=== PATIENT | male | born 1945 | race Caucasian/White ===

== ENCOUNTER 2022-03-25 05:58 | Inpatient (IN) ==
[2022-03-22 12:50] LABS: Basophils % 0.4 % (0.0-0.8); Eosinophils # 0.1 10*3/uL (0.0-0.87); Eosinophils % 2.7 % (0.00-10.9); Hemoglobin 10.1 GM/DL (14.0-18.0); Immature Granulocytes % 0.4 %; Immature Granulocytes Absolute 0.02 #; Lymphocytes # 0.6 10*3/uL (1.4-4.0); Mean Corpuscular HGB Conc 32.6 GM/DL (32-36); Mean Corpuscular Volume 98.1 FL (87-102); Mean Platelet Volume 12.8 FL (9.6-12.0); Monocytes # 0.2 10*3/uL (0.11-0.8); Monocytes % 4.2 % (1.7-12.7); Neutrophils % 79.3 % (38.7-73.9); Platelet Count 77 T/CUMM (130-400); Red Blood Count 3.16 MC/CUMM (3.8-5.5); Red Cell Distribution Width 18.2 % (9.3-17.3); White Blood Count 4.78 T/CUMM (4-12)
[2022-03-22 12:57] LABS: PT Patient Result 11.2 SECS (10.1-12.1)
[2022-03-22 13:15] LABS: Albumin 3.5 G/DL (3.4-5.0); Bilirubin,Total 1.1 MG/DL (0.20-1.00); Calcium 8.6 MG/DL (8.5-10.1); Osmolality,Calculated 282.5 MOS/KG (273-304); Potassium 4.3 MMOL/L (3.5-5.1)
[2022-03-22 13:20] LABS: Macrocytosis Slight; Platelet Estimate Decreased
[~2022-03-25 05:58] MED LIST: LEVOFLOXACIN INJ 500 MG/100 ML PREMIX IV ONE
[2022-03-25] MEDS ORDERED: LACTATED RINGERS 1,000 ML IV SCH (07:00)
[2022-03-25] MEDS ORDERED: FAMOTIDINE 20 MG TABLET PO STA (07:41)
[2022-03-25] MEDS ORDERED: FAMOTIDINE 20 MG TABLET ONE (07:41)
[2022-03-25] MEDS ORDERED: DEXTROSE 50% 25 GM/50 ML SYRINGE IV ONE (07:58)
[2022-03-25] MEDS ORDERED: LEVOFLOXACIN INJ 500 MG/100 ML PREMIX IV ONE (08:00)
[2022-03-25] MEDS ORDERED: DEXTROSE 50% 25 GM/50 ML SYRINGE IV STA (08:00)
[2022-03-25] MEDS ORDERED: ePHEDrine 50 MG/ML VIAL ONE (08:13)
[2022-03-25] MEDS ORDERED: fentaNYL 100 MCG/2 ML VIAL ONE (08:14)
[2022-03-25] MEDS ORDERED: HEPARIN/NACL 0.9% 2 UNITS/ML 2,000 UNIT/1,000 ML BAG IV ONE ×2 (09:50)
[2022-03-25] MEDS ORDERED: LIDOCAINE 2% 5 ML VIAL ONE (13:00)
[2022-03-25] MEDS ORDERED: NEOSTIGMINE 10 MG/10 ML VIAL ONE (13:00)
[2022-03-25] MEDS ORDERED: propofoL 200 MG/20 ML VIAL IV ONE (13:00)
[2022-03-25] MEDS ORDERED: SEVOFLURANE 1 UNIT/15 MINUTE INH ONE (13:00)
[2022-03-25] MEDS ORDERED: PHENYLEPHRINE 1 MG/10 ML SYRINGE IV ONE (13:00)
[2022-03-25] MEDS ORDERED: PHENYLEPHRINE 10 MG/1 ML VIAL IV ONE (13:01)
[2022-03-25] MEDS ORDERED: ONDANSETRON 4 MG/2 ML VIAL ONE (13:01)
[2022-03-25] MEDS ORDERED: GLYCOPYRROLATE 0.4 MG/2 ML VIAL ONE (13:01)
[2022-03-25] MEDS ORDERED: SODIUM CHLORIDE 0.9% 100 ML IV ONE (13:01)
[2022-03-25] MEDS ORDERED: SODIUM CHLORIDE 0.9% 250 ML IV ONE (13:01)
[2022-03-25] MEDS ORDERED: LACTATED RINGERS 1,000 ML IV ONE (13:01)
[2022-03-25] MEDS ORDERED: DEXAMETHASONE 4 MG/1 ML VIAL ONE (13:01)
[2022-03-25] MEDS ORDERED: ROCURONIUM 50 MG/5 ML VIAL IV ONE (13:01)
[2022-03-25] MEDS ORDERED: GLUCAGON 1 MG VIAL IM PRN (15:21)
[2022-03-25] MEDS ORDERED: DEXTROSE 10% 250 ML BAG IV PRN (15:24)
[2022-03-25] MEDS ORDERED: CALCIUM CARBONATE CHEW 500 MG TABLET PO PRN (15:57)
[2022-03-25] MEDS ORDERED: CALCIUM CARBONATE CHEW 500 MG TABLET PO ONE (15:57)
[2022-03-25] MEDS: INSULIN LISPRO 100 UNIT/ML SUBCUT SCH ×2 (16:49→21:40)
[2022-03-25] MEDS ORDERED: SIMVASTATIN 10 MG TABLET PO SCH (21:00)
[2022-03-25] MEDS ORDERED: guaiFENesin 200 MG/10 ML UDCUP PO PRN (23:03)
[2022-03-26 06:58] VITALS: BP 99/45
[2022-03-26 08:55] LABS: Basophils % 0.5 % (0.0-0.8); Eosinophils # 0.1 10*3/uL (0.0-0.87); Eosinophils % 2.4 % (0.00-10.9); Hematocrit 28.8 VOL% (42.0-52.0); Hemoglobin 9.2 GM/DL (14.0-18.0); Immature Granulocytes % 1.2 %; Immature Granulocytes Absolute 0.07 #; Lymphocytes # 0.8 10*3/uL (1.4-4.0); Lymphocytes % 13.5 % (21.2-54.2); Mean Corpuscular HGB Conc 31.9 GM/DL (32-36); Mean Corpuscular Volume 100.3 FL (87-102); Mean Platelet Volume 11.3 FL (9.6-12.0); Monocytes # 0.3 10*3/uL (0.11-0.8); Monocytes % 5.7 % (1.7-12.7); Neutrophils % 76.7 % (38.7-73.9); Platelet Count 77 T/CUMM (130-400); Red Blood Count 2.87 MC/CUMM (3.8-5.5); Red Cell Distribution Width 18.4 % (9.3-17.3); White Blood Count 5.93 T/CUMM (4-12)
[2022-03-26] MEDS ORDERED: PANTOPRAZOLE 40 MG TABLET PO SCH (09:00)
[2022-03-26 09:11] LABS: Calcium 8.7 MG/DL (8.5-10.1); Osmolality,Calculated 285.5 MOS/KG (273-304); Potassium 4.3 MMOL/L (3.5-5.1)
[2022-03-26 09:19] LABS: Macrocytosis Slight; Platelet Estimate Decreased
[2022-03-26] MEDS: INSULIN LISPRO 100 UNIT/ML SUBCUT SCH (09:24)
== END 2022-03-26 10:50 | disposition home or self-care (01) | DRG 406 ==
LOC: N.SDSINP 06:00 → N.3E 13:31
PROVIDERS: ADMIT Radiology Diagnostic Radiology; ATTEND Radiology Diagnostic Radiology
PROC: IRTIPSW (2022-03-25 06:35)